=== PATIENT | male | born 1985 | race Caucasian/White ===

== ENCOUNTER 2019-08-07 15:22 | Emergency (ER) | payer SELFPAY ==
[2019-08-07 15:22] VITALS: BP 117/71; PULSE 85; RESP 16; TEMP 36.6; O2SAT 97; BMI 32.5
--- NOTE | 2019-08-07 15:33 | EKG12_ITS ---
Test Reason : SYNCOPE Blood Pressure : / mmHG Vent. Rate : 076 BPM Atrial Rate : 076 BPM P-R Int : 172 ms QRS Dur : 082 ms QT Int : 382 ms P-R-T Axes : 032 040 016 degrees QTc Int : 429 ms Normal sinus rhythm Normal ECG When compared with ECG of 16-JUL-2012 08:34, No significant change was found Confirmed by LUCIE JACKSON ([id number]), book or script editor BRADLEY ANDERSON ([id number]) on 08/14/2019 1:20:35 PM Referred By: PEACE Confirmed By:LUCIE JACKSON
--- NOTE | 2019-08-07 15:34 | ED.VISSUMM ---
- ER Visit Summary Date of Service: 08/07/19 Chief Complaint: Syncopal episode History of Present Illness: The patient is a 34 M who had a syncopal episode today. He was watching his uncle get an NG tube placed and he felt lightheaded and then had a syncopal episode. According to bystanders at only lasted a few seconds. He has no symptoms currently. Denies any headache, nausea, vomiting. No chest pain or shortness of breath. He had a similar episode previously when he saw blood from a bandage change. Physical Examination: Vital signs reviewed. HEENT exam unremarkable. Heart is regular rate and rhythm without murmurs. Lungs are clear to auscultation. Abdomen is soft and nontender. Extremities reveal no edema. Peripheral pulses are equal. Skin exam normal. Neurologic exam normal. Test Results: The patient's EKG was a sinus rhythm with a rate of 76. There are no ischemic changes. Emergency Department Course and Treatment: Is likely vasovagal episode. His vital signs are normal. I do not feel he needs any laboratory studies. Patient will be discharged to follow-up as needed Treatment Plan: [] Disposition: Discharge Impression: Vasovagal syncope This note was generated with [employer] dictation software. It may contain incorrect words, spelling, and punctuation that were not noted in review of the chart prior to signing ED Disposition - Plan for ED Patient: Referrals: Ed Mendez DO [Primary Care Provider] -
--- NOTE | 2019-08-07 16:11 | ED.DEP ---
ED Disposition - Plan for ED Patient: Disposition: Home or Assisted Living Instructions: SYNCOPE, Vasovagal Referrals: Ed Mendez DO [Primary Care Provider] -
[2019-08-07 16:16] VITALS: RESP 16
--- NOTE | 2019-08-07 16:16 | ED.RN ---
REVIEWED D/C INSTRUCTIONS, FOLLOW UP CARE, AND S/S THAT WOULD WARRANT A RETURN TO THE ED WITH PT. PT VERBALIZED AN UNDERSTANDING AND DENIES FURTHER QUESTIONS FOR THIS RN. PT SKIN P/W/D, RESP EVEN AND UNLABORED, PT A&O X 3, NO DISTRESS NOTED. PT AMBULATED OUT OF ED, GAIT STEADY.
[2019-08-12 07:05] LABS: Bedside Glucose 94 mg/dL (70-110)
== END 2019-08-07 16:17 | disposition home or self-care (01) ==
PROVIDERS: Emergency Provider Emergency Medicine; PCP Preventive Medicine Occupational Medicine
DX: R55 Syncope and collapse (principal)
CPT/HCPCS: 82962; 93005; 99282

== ENCOUNTER → 2021-03-09 16:31 | Outpatient (CLI) | payer OTHER, SELFPAY ==
--- NOTE | 2021-03-09 16:35 | RAD_ITS ---
STUDY: X-RAY - LEFT SHOULDER REASON FOR EXAM: Male, 36 years old. PAIN FOLLOWING PULLING WHEELCHAIR UP A RAMP TECHNIQUE: 4 view(s) of the shoulder. COMPARISON: Chest x-ray dated July 16, 2012 FINDINGS: Normal glenohumeral articulation. Normal acromioclavicular joint. Normal acromion. Normal humeral head and visualized proximal humerus. The soft tissue structures are unremarkable. There is no demonstrated fracture. Normal visualized pulmonary apex. RAD/Shoulder min 2 Views IMPRESSION: Normal x-ray examination of the shoulder. Electronically Signed: Fernie Barrera MD at 17:51 EDT , Service support ,
== END ==
PROVIDERS: PCP Preventive Medicine Occupational Medicine; Referring Provider Physician Assistant; Visit Provider Physician Assistant
DX: S46.912A Strain of unspecified muscle, fascia and tendon at shoulder and upper arm level, left arm, initial encounter (principal)
CPT/HCPCS: 73030

== ENCOUNTER 2021-04-11 07:00 | Outpatient (RCR) | payer OTHER, SELFPAY ==
--- NOTE | 2021-03-21 07:40 | HP.PTEVAL_ITS ---
Patient's Visit Information PASTORA ALEXANDER is a 36 year old M referred to Physical Therapy by JAYASHREE Smith with a diagnosis of Strain of muscle in upper arm and shoulder. Date of Evaluation: 03/21/21 Physical Therapist: ANNELIESE Saavedra - Visit Plan Frequency: 2-3x /Week Duration: 6 Weeks Plan: 2-3X/ week for 10 visits for L shoulder PROM/AAROM/AROM, L shoulder and SCAPULAR strengthening with HEP and modalities if needed for pain control. 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 He was trying to push client up into the van and she could not get her in the van and had to have someone help him get her into the van. After he got her dropped off he was hurting and wrote up an incident report. He notices that he has lost ROM and that it pops. He can not get over his head with his arm. It is his L shoulder. They took an x-ray and that was negative. He takes pain meds as needed. He is sleeping ok for the most part. he notices the pain if he sleeps on that side. He is Right handed. He has no N&T. He has weakness and loss of ROM. He has no neck pain. 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 L shoulder flexion 141 degrees, abd 125 degrees, IR T12, 45. R shoulder flexion 175 degrees, abd 180 degrees, IR T8, ER 57. R shoulder MMT flexion and abd 4/5, ER 4/5 and IR 4+/5. L shoulder MMT flex and abd 4-/5 and ER 4-/5 and IR 4/5. increase popping/clunking of the L shoulder blade with AROM as well as PROM on the L. +Hypermobility signs of UE present. -Empty can test. Palpation: tender along the L uppper and mid trap. some slight tenderness under acromion and bicep compared to the R. - Balance/Special Test Scores Quick DASH Score: 20.4525 - Goals Goal 1:: I HEP Goal Time Frame: 4-6 Weeks Goal 2:: Increase L shoulder AROM to 175 degrees elevation to equal the R shoulder Goal Time Frame: 4-6 Weeks Goal 3:: Decrease the popping and clunking in the L shoulder that is associated with his pain Goal Time Frame: 4-6 Weeks Goal 4:: Be able to return to ADL's and work duties without L shoulder pain Goal Time Frame: 4-6 Weeks - Rehabilitation Potential Rehabilitation Potential: Good - Anticipated Interventions Patient/Client Instruction: Educate patient on: Condition, Plan of Care For the Purpose of:: To decrease pain, To increase ROM, To improve nutrient delivery to tissue, To increase oxygenation perfusion, To improve muscle performance and motor function, To improve ability to perform ADL's, To increase tolerance to activity/condition/position, To improve performance and independence with ADL's, To improve ability of physical actions for home/community/work/leisure, To improve health of tissue Therapeutic Exercise to Include: Strength training, Postural training, Active ROM, Scapular Strength/Stabilization For the Purpose of:: To decrease pain, To increase ROM, To improve nutrient delivery to tissue, To improve ability to perform ADL's, To increase tolerance to activity/condition/position, To improve performance and independence with A DL's, To improve gait and locomotor functions, To increase flexibility/ROM Manual Therapy Techniques to Include: Passive ROM, Soft tissue mobilization For the Purpose of:: To decrease pain, To increase ROM, To improve nutrient delivery to tissue, To improve muscle performance and motor function IF ES: Yes Cryotherapy (ice pack, ice massage): Yes Ultrasound (thermal/non thermal): Yes For the Purpose of:: To decrease pain, To decrease swelling/inflammation, To improve nutrient delivery to tissue Thank you for the opportunity to evaluate your patient. For Medicare and Medicare HMO plans, please review the plan of care and approve it. It will need to be FAXED BACK to us at [phone] for Medicare purposes. For Medicare only, by signing this I certify the plan of care. Please let me know if there are questions or concerns regarding this plan of care. Physician Signature: Date:
--- NOTE | 2021-04-11 07:26 | HP.PTDCSUM ---
It has been my pleasure to treat PASTORA ALEXANDER referred by JAYASHREE Smith, with the diagnosis of Strain of muscle in upper arm and shoulder for a total of 9 visit(s). Discharge Date: 04/11/21 Please see the following information for a summary of their discharge status. Subjective: Pt reports that his shoulder feels better and that he has ROM back. Pt feels that his shoulder does not bother him. Occ he will have pain at the end of the day or after sleeping on it and it usually goes away. He is on light duty until tomm and sees the Dr wellington. His appt is at 4:00pm tomm. L shoulder pain Pain Intensity (Out of 10): 0 % Improvement: 100 Objective/Function: L shoulder AROM flexion 175 degrees. L shoulder AROM abd 180 degrees. Pt not back to full duty yet Goal 1:: I HEP Goal Progress: Goal Met Goal 2:: Increase L shoulder AROM to 175 degrees elevation to equal the R shoulder Goal Progress: Goal Met Goal 3:: Decrease the popping and clunking in the L shoulder that is associated with his pain Goal Progress: Goal Met Goal 4:: Be able to return to ADL's and work duties without L shoulder pain Goal Progress: Progressing Plan: DC PT to HEP Discharge Comments: DC PT to HEP. Issued a purple band for home as his broke If there are questions or concerns regarding this patient's physical therapy, please feel free to call me at [phone]. Thank you for the referral of this patient. Sincerely, Tracy Zarate, MPT Balance/Gait/Functional tests - Balance/Special Test Scores Quick DASH Score: 2.2725
== END 2021-04-11 19:00 | disposition home or self-care (01) ==
LOC: PT 07:00
PROVIDERS: PCP Preventive Medicine Occupational Medicine; Referring Provider Physician Assistant; Visit Provider Physician Assistant
DX: S46.812D Strain of other muscles, fascia and tendons at shoulder and upper arm level, left arm, subsequent encounter (principal); X58.XXXD Exposure to other specified factors, subsequent encounter
CPT/HCPCS: 97110; 97161